=== PATIENT | female | born 1965 | race African-American/Black ===

== ENCOUNTER 2018-02-15 14:01 | Emergency (ER) | payer MEDICAID ==
[~2018-02-15] VITALS: Ht 177.8 cm; Wt 110.0 kg
[2018-02-15 16:42] LABS: BASOPHILS % 1.2 % (0.0-2.0); EOSINOPHILS % 1.4 % (0.0-5.0); HEMATOCRIT. 34.6 % (36.0-48.0); HEMOGLOBIN. 11.4 g/dL (12.0-16.0); LYMPHOCYTES % 46.5 % (20.0-50.0); MEAN CORPUSCULAR HEMOGLOBIN 27.7 pg (28.0-32.0); MEAN CORPUSCULAR VOLUME 84.4 fL (81.0-99.0); MEAN PLATELET VOLUME 7.5 fl (7.4-10.4); MONOCYTES % 8.9 % (2.0-8.0); PLATELET 406 x1000/uL (130-400); RED CELL DISTRIBUTION WIDTH 14.5 % (11.6-14.6)
[2018-02-15 16:47] LABS: CHLORIDE 106 mEq/L (98-107)
[2018-02-16 01:11] VITALS: BP 131/67
== END 2018-02-16 02:13 | disposition home or self-care (01) ==
LOC: ER 14:01
DX: R55 Syncope and collapse (principal); E11.9 Type 2 diabetes mellitus without complications
CPT/HCPCS: 36415; 71045; 93005; 99284

== ENCOUNTER 2018-11-18 16:17 | Emergency (ER) | payer MEDICAID ==
[~2018-11-18] VITALS: Ht 172.7 cm; Wt 100.0 kg
[2018-11-18 16:23] VITALS: BP 149/92
== END 2018-11-18 18:30 | disposition left against medical advice (07) ==
LOC: ER 16:17
DX: Z53.21 Procedure and treatment not carried out due to patient leaving prior to being seen by health care provider (principal)

== ENCOUNTER 2019-07-06 12:00 | Inpatient (IN) | payer MEDICAID ==
[~2019-07-06] VITALS: Ht 182.9 cm; Wt 97.2 kg
[2019-07-06] MEDS ORDERED: SODIUM CHLORIDE 0.9% 1,000 ML IV ONE (12:14)
[2019-07-06 12:42] LABS: BASOPHILS % 0.9 % (0.0-2.0); EOSINOPHILS % 0.5 % (0.0-5.0); HEMATOCRIT. 32.6 % (36.0-48.0); HEMOGLOBIN. 10.7 g/dL (12.0-16.0); MEAN CORPUSCULAR VOLUME 85.1 fL (81.0-99.0); MONOCYTES % 8.7 % (2.0-8.0); NEUTROPHILS % 51.9 % (40.0-76.0); PLATELET 423 x1000/uL (130-400); RED BLOOD CELL COUNT 3.83 mill/uL (4.2-5.4); RED CELL DISTRIBUTION WIDTH 14.2 % (11.6-14.6)
[2019-07-06 12:43] LABS: CHLORIDE 109 mEq/L (98-107)
[2019-07-06 12:47] LABS: PROTHROMBIN TIME 10.7 sec (9.6-11.0)
[2019-07-06 12:50] LABS: ETHANOL BLOOD < 10 mg/dL; LDL CHOLESTEROL 150 mg/dL (5-100)
[2019-07-06 12:52] LABS: CREATINE KINASE 62 IU/L (26-192)
[2019-07-06 12:53] LABS: PHENOBARBITAL < 2.1 ug/mL (15.0-40.0)
[2019-07-06] MEDS ORDERED: PHENOBARBITAL 100MG TABLET PO ONE (13:30)
[2019-07-06] MEDS ORDERED: PHENYTOIN SODIUM 1,000 MG in SODIUM CHLORIDE 0.9% 100 ML IV ONE (13:30)
[2019-07-06 15:30] LABS: COLOR URINE YELLOW (YELLOW); KETONES URINE NEGATIVE (NEGATIVE); LEUKOCYTE ESTERASE URINE NEGATIVE (NEGATIVE); NITRITE URINE NEGATIVE (NEGATIVE); OCCULT BLOOD URINE NEGATIVE (NEGATIVE); PROTEIN URINE NEGATIVE (NEGATIVE); SPECIFIC GRAVITY URINE 1.003 (1.005-1.030); UROBILINOGEN URINE 0.2 E.U./dL (0.2-1.0)
[2019-07-06 15:33] LABS: CLARITY URINE CLEAR (CLEAR)
[2019-07-06 15:46] LABS: *AMPHETAMINES SCREEN URINE NEGATIVE (NEGATIVE); *BARBITURATES SCREEN URINE NEGATIVE (NEGATIVE); *BENZODIAZEPINES SCREEN URINE NEGATIVE (NEGATIVE); *COCAINE SCREEN URINE NEGATIVE (NEGATIVE)
[2019-07-06 15:47] LABS: CANNABINOID URINE SCREEN NEGATIVE (NEGATIVE); METHADONE URINE SCREEN NEGATIVE (NEGATIVE); OPIATES URINE SCREEN NEGATIVE (NEGATIVE); PHENCYCLIDINE URINE SCREEN NEGATIVE (NEGATIVE)
[2019-07-06] MEDS ORDERED: ACETAMINOPHEN 325MG TABLET PO PRN (16:30)
[2019-07-06] MEDS ORDERED: CLONIDINE 0.1MG TABLET PO PRN (16:30)
[2019-07-06] MEDS ORDERED: HYDROCODONE/ACETAMINOPHEN 5/325MG TABLET PO PRN (16:30)
[2019-07-06] MEDS ORDERED: IPRATROPIUM/ALBUTEROL 0.5-3(2.5)MG/3ML NEB HHN PRN (16:30)
[2019-07-06] MEDS ORDERED: LORAZEPAM 0.5MG TABLET PO PRN (16:30)
[2019-07-06] MEDS ORDERED: ONDANSETRON HCL 4MG/2ML INJ IV PRN (16:30)
[2019-07-06 19:19] LABS: PHOSPHORUS 3.5 mg/dL (2.5-4.9)
[2019-07-06] MEDS: ASPIRIN 81MG TABLET PO SCH (19:32)
[2019-07-06 21:05] VITALS: BP 140/57
[2019-07-06 22:00] VITALS: BP 140/57
[2019-07-06] MEDS: ATORVASTATIN CALCIUM 40MG TABLET PO SCH (23:40)
[2019-07-07] VITALS: BP 135/68
[2019-07-07 04:00] VITALS: BP 116/46
[2019-07-07 06:43] LABS: CHLORIDE 112 mEq/L (98-107)
[2019-07-07 06:52] LABS: BASOPHILS % 0.9 % (0.0-2.0); EOSINOPHILS % 1.1 % (0.0-5.0); HEMATOCRIT. 32.3 % (36.0-48.0); HEMOGLOBIN. 10.5 g/dL (12.0-16.0); MEAN CORPUSCULAR HEMOGLOBIN 27.7 pg (28.0-32.0); MEAN CORPUSCULAR VOLUME 85.6 fL (81.0-99.0); MEAN PLATELET VOLUME 7.3 fl (7.4-10.4); PLATELET 382 x1000/uL (130-400); RED BLOOD CELL COUNT 3.77 mill/uL (4.2-5.4); RED CELL DISTRIBUTION WIDTH 14.1 % (11.6-14.6)
[2019-07-07 08:00] VITALS: BP 132/54
[2019-07-07] MEDS: ASPIRIN 81MG TABLET PO SCH (09:00)
[2019-07-07 12:00] VITALS: BP 134/55
[2019-07-07 16:17] VITALS: BP 139/60
[2019-07-07] MEDS: ENOXAPARIN 40MG/0.4ML SYR SUBCUT SCH (18:30)
[2019-07-07 20:30] VITALS: BP 126/52
[2019-07-07] MEDS: ATORVASTATIN CALCIUM 40MG TABLET PO SCH (22:31)
[2019-07-07] MEDS: PHENYTOIN SODIUM EXTENDED 100MG CAPSULE PO SCH (22:32)
[2019-07-08 00:55] VITALS: BP 122/49
[2019-07-08 04:00] VITALS: BP 141/52
[2019-07-08 05:49] LABS: CHLORIDE 110 mEq/L (98-107)
[2019-07-08 06:00] VITALS: BP 141/52
[2019-07-08 06:38] LABS: EOSINOPHILS % 1.4 % (0.0-5.0); HEMATOCRIT. 33.9 % (36.0-48.0); HEMOGLOBIN. 11.4 g/dL (12.0-16.0); LYMPHOCYTES % 32.4 % (20.0-50.0); MEAN CORPUSCULAR HEMOGLOBIN 28.6 pg (28.0-32.0); MEAN PLATELET VOLUME 7.6 fl (7.4-10.4); MONOCYTES % 8.4 % (2.0-8.0); NEUTROPHILS % 56.8 % (40.0-76.0); PLATELET 403 x1000/uL (130-400); RED BLOOD CELL COUNT 3.99 mill/uL (4.2-5.4); RED CELL DISTRIBUTION WIDTH 14.2 % (11.6-14.6)
[2019-07-08 08:00] VITALS: BP 117/53
[2019-07-08] MEDS: ASPIRIN 81MG TABLET PO SCH (08:25)
[2019-07-08] MEDS ORDERED: LIP40 PO (13:12)
[2019-07-08] MEDS ORDERED: PHEN100C4 PO (13:12)
[2019-07-08] MEDS ORDERED: ASPI-1160 PO (13:12)
[2019-07-08] MEDS: ENOXAPARIN 40MG/0.4ML SYR SUBCUT SCH ×2 (17:45→17:46)
[2019-07-08 18:09] VITALS: BP 145/82
[2019-07-08 20:00] VITALS: BP 130/66
[2019-07-08] MEDS: PHENYTOIN SODIUM EXTENDED 100MG CAPSULE PO SCH (21:49)
[2019-07-08] MEDS: ATORVASTATIN CALCIUM 40MG TABLET PO SCH (21:49)
[2019-07-09] VITALS: BP 118/55
[2019-07-09 04:00] VITALS: BP 118/84
[2019-07-09] MEDS: ASPIRIN 81MG TABLET PO SCH (09:08)
[2019-07-09 15:35] VITALS: BP 110/80
== END 2019-07-09 15:50 | disposition home or self-care (01) | DRG 47 ==
LOC: ER 12:00 → 6WST 16:10 → EDBEDREQSVC 16:20 → EDBEDREQ 16:20 → ENRESERV 19:08
PROVIDERS: ADMIT Internal Medicine; ATTEND Internal Medicine
DX: G45.9 Transient cerebral ischemic attack, unspecified (principal); G93.40 Encephalopathy, unspecified; G40.909 Epilepsy, unspecified, not intractable, without status epilepticus; D64.9 Anemia, unspecified; E78.5 Hyperlipidemia, unspecified; I10 Essential (primary) hypertension; R73.9 Hyperglycemia, unspecified; R47.1 Dysarthria and anarthria; Z86.73 Personal history of transient ischemic attack (TIA), and cerebral infarction without residual deficits
CPT/HCPCS: 36415; 70551; 71045; 80048; 80053; 80061; 80184; 80185; 80305; 80320; 81003; 82140; 82550; 82607; 82728; 82746; 82962; 83036; 83540; 83550; 83721; 83735; 84100; 84484; 85025; 92610; 93005; 93306; 93880; 97162; 97166; 99285; J1165; J1650; J7030; J7050; G0480

== ENCOUNTER 2021-09-14 17:46 | Emergency (ER) | payer MEDICAID ==
[~2021-09-14] VITALS: Ht 167.6 cm; Wt 100.0 kg
[~2021-09-14 17:46] MED LIST: ASPI-1160 PO; LIP40 PO; PHEN100C4 PO
[2021-09-14 17:55] VITALS: BP 152/82
[2021-09-14] MEDS ORDERED: ACETAMINOPHEN 325MG TABLET PO ONE (18:30)
[2021-09-14] MEDS ORDERED: T3 PO (19:27)
[2021-09-14] MEDS ORDERED: IBUP-2028 PO (19:27)
== END 2021-09-14 19:55 ==
LOC: ER 17:46
DX: M25.562 Pain in left knee (principal); M25.552 Pain in left hip; I10 Essential (primary) hypertension
CPT/HCPCS: 73502; 73560; 99284